=== PATIENT | male | born 1970 | race Caucasian/White ===

== ENCOUNTER 2018-08-27 22:50 | Emergency (ER) | payer BC ==
[~2018-08-27] VITALS: Ht 182.9 cm; Wt 89.8 kg
[2018-08-27 22:56] VITALS: BP_SYST 147
--- NOTE | 2018-08-27 23:00 | NUR ---
Pt placed to ER waiting room in stable condition.
--- NOTE | 2018-08-27 23:10 | NUR ---
called pt name in the waiting room ,no response.
--- NOTE | 2018-08-27 23:18 | NUR ---
called pt name in the waiting room,no response.
--- NOTE | 2018-08-27 23:23 | NUR ---
Called pt name in the wr,no response.
== END 2018-08-27 23:23 | disposition left against medical advice (07) ==
LOC: SED 22:50
DX: R31.9 Hematuria, unspecified (principal); R10.9 Unspecified abdominal pain; R11.0 Nausea; Z53.21 Procedure and treatment not carried out due to patient leaving prior to being seen by health care provider